=== PATIENT | female | born 2000 | race Caucasian/White ===

== ENCOUNTER 2019-02-01 16:13 | Emergency (ER) | payer BC ==
[2019-02-01] MEDS ORDERED: NS 0.9% 1000 ML** 1,000 ML IV ONE ×2 (16:33→18:28)
[2019-02-01 17:05] LABS: ABS Basophils 0.1 10^3/ul (0-0.2); ABS Lymphocytes 0.5 10^3/ul (1.0-4.8); ABS Monocytes 0.7 10^3/ul (0-0.8); ABS Neutrophils 9.4 10^3/ul (1.5-7.7); Eosinophil % 0.4 %; Hematocrit 45 % (35-47); Lymphocyte % 4.7 %; Mean Corpuscular HGB Conc 36 g/dL (31-36); Mean Corpuscular Hemoglobin 31 pg (27-31); Mean Corpuscular Volume 86 fL (80-97); Mean Platelet Volume 8.9 fL (7.4-10.4); Platelet Count 176 10^3/uL (150-450); Red Blood Count 5.18 10^6 /uL (3.70-4.87); Red Cell Distribution Width 13 % (10-15); White Blood Count 10.8 10^3/uL (3.5-10.8)
[2019-02-01 17:30] LABS: ALT 20 U/L (7-52); AST 23 U/L (13-39); Albumin 4.3 g/dL (3.2-5.2); Albumin/Globulin Ratio 1.6 (1-3); Alkaline Phosphatase 73 U/L (34-104); Anion Gap 10 mmol/L (2-11); BUN/Creatinine Ratio 16.1 (8-20); Blood Urea Nitrogen 15 mg/dL (6-24); CO2 Carbon Dioxide 23 mmol/L (22-32); Calcium 9.3 mg/dL (8.6-10.3); Chloride 106 mmol/L (101-111); EGFR Non-African American 77.7 (>60); Globulin 2.7 g/dL (2-4); Glucose 109 mg/dL (70-100); Potassium 3.9 mmol/L (3.5-5.0); Sodium 139 mmol/L (135-145)
[2019-02-01 17:31] LABS: HCG Pregnancy < 0.60 mIU/mL
--- NOTE | 2019-02-01 18:10 | ED ---
Abdominal Pain/Female - HPI Summary HPI Summary: Patient is a 18 y/o F presenting to [facility] with complaints of abdominal pain and N/V/D. She states that Sx onset this morning, 02/01/19, when she awoke. Pain is described as an ache and is noted to be at lower abdomen. She states that her friend was at [facility] for similar Sx and was diagnosed with "stomach virus". She denies recent travel to foreign countries in the past thirty days. Abdominal pain is slightly better since onset but still present. She denies cough, blood in stool. Stool is watery. Vitals in room are pulse 93, o2 99 on RA, and BP 122/ 70. - History of Current Complaint Chief Complaint: EDNauseaVomitDiarrh Stated Complaint: ABD PAIN,VOMITING,DIARRHEA PER PT Time Seen by Provider: 02/01/19 16:32 Hx Obtained From: Patient Onset/Duration: Lasting Hours, Still Present Timing: Hours Severity Currently: Severe Pain Intensity: 8 Pain Scale Used: 0-10 Numeric Location: Other - lower Character: Other: - aching Associated Signs and Symptoms: Positive: Nausea, Vomiting, Diarrhea, Other: - no cough or blood in stool Allergies/Adverse Reactions: Allergies Allergy/AdvReac Type Severity Reaction Status Date / Time No Known Allergies Allergy Verified 02/01/19 17:44 PMH/Surg Hx/FS Hx/Imm Hx Sensory History: Denies: Hx Legally Blind, Hx Deafness Opthamlomology History: Denies: Hx Legally Blind EENT History: Denies: Hx Deafness Infectious Disease History: No Infectious Disease History: Denies: Traveled Outside the [place] in Last 30 Days - Family History Known Family History: Negative: Hypertension - Social History Alcohol Use: None Substance Use Type: Reports: None Smoking Status (MU): Never Smoked Tobacco Review of Systems Negative: Cough Gastrointestinal: Other - negative - blood in stool Positive: Abdominal Pain, Vomiting, Diarrhea, Nausea All Other Systems Reviewed And Are Negative: Yes Physical Exam - Summary Physical Exam Summary: Constitutional: Well-developed, Well-nourished, Alert. (-) Distressed Skin: Warm, Dry HENT: Normocephalic; Atraumatic Eyes: Conjunctiva normal Neck: Musculoskeletal ROM normal neck. (-) JVD, (-) Stridor, (-) Tracheal deviation Cardio: Rhythm regular, rate normal, Heart sounds normal; Intact distal pulses; The pedal pulses are 2+ and symmetric. Radial pulses are 2+ and symmetric. (-) Murmur Pulmonary/Chest wall: Effort normal. (-) Respiratory distress, (-) Wheezes, (-) Rales Abd: Soft, general tenderness throughout lower abdomen, no focal tenderness (-) Distension, (-) Guarding, (-) Rebound Musculoskeletal: (-) Edema Lymph: (-) Cervical adenopathy Neuro: Alert, Oriented x3 Psych: Mood and affect Normal Triage Information Reviewed: Yes Vital Signs On Initial Exam: Initial Vitals Temp Pulse Resp BP Pulse Ox 99.4 F 116 20 122/80 98 02/01/19 16:19 02/01/19 16:19 02/01/19 16:19 02/01/19 16:19 02/01/19 16:19 Vital Signs Reviewed: Yes Procedures - Sedation Patient Received Moderate/Deep Sedation with Procedure: No Diagnostics - Vital Signs Vital Signs Temp Pulse Resp BP Pulse Ox 02/01/19 17:48 99.4 F 02/01/19 17:46 102 119/55 99 02/01/19 16:19 99.4 F 116 20 122/80 98 - Laboratory Lab Results: Lab Results 02/01/19 02/01/19 Range/Units 16:42 16:42 WBC 10.8 (3.5-10.8) 10^3/uL RBC 5.18 H (3.70-4.87) 10^6 /uL Hgb 16.0 (12.0-16.0) g/dL Hct 45 (35-47) % MCV 86 (80-97) fL MCH 31 (27-31) pg MCHC 36 (31-36) g/dL RDW 13 (10-15) % Plt Count 176 (150-450) 10^3/uL MPV 8.9 (7.4-10.4) fL Neut % (Auto) 87.8 % Lymph % (Auto) 4.7 % Sutton % (Auto) 6.3 % Eos % (Auto) 0.4 % Baso % (Auto) 0.8 % Absolute Neuts (auto) 9.4 H (1.5-7.7) 10^3/ul Absolute Lymphs (auto) 0.5 L (1.0-4.8) 10^3/ul Absolute Monos (auto) 0.7 (0-0.8) 10^3/ul Absolute Eos (auto) 0.0 (0-0.6) 10^3/ul Absolute Basos (auto) 0.1 (0-0.2) 10^3/ul Absolute Nucleated RBC 0.0 10^3/ul Nucleated RBC % 0.0 Sodium 139 (135-145) mmol/L Potassium 3.9 (3.5-5.0) mmol/L Chloride 106 (101-111) mmol/L Carbon Dioxide 23 (22-32) mmol/L Anion Gap 10 (2-11) mmol/L BUN 15 (6-24) mg/dL Creatinine 0.93 (0.51-0.95) mg/dL Est GFR ( Amer) 94.0 (>60) Est GFR (Non-Af Amer) 77.7 (>60) BUN/Creatinine Ratio 16.1 (8-20) Glucose 109 H (70-100) mg/dL Calcium 9.3 (8.6-10.3) mg/dL Total Bilirubin 0.60 (0.2-1.0) mg/dL AST 23 (13-39) U/L ALT 20 (7-52) U/L Alkaline Phosphatase 73 (34-104) U/L Total Protein 7.0 (6.4-8.9) g/dL Albumin 4.3 (3.2-5.2) g/dL Globulin 2.7 (2-4) g/dL Albumin/Globulin Ratio 1.6 (1-3) Beta HCG, Quant < 0.60 mIU/mL Result Diagrams: 02/01/19 16:42 02/01/19 16:42 Lab Statement: Any lab studies that have been ordered have been reviewed, and results considered in the medical decision making process. Abdominal Pain Fem Course/Dx - Course Course Of Treatment: Patient is a 18 y/o F presenting to [facility] with complaints of abdominal pain and N/V/D. She states that Sx onset this morning, 02/01/19, when she awoke. Pain is described as an ache and is noted to be at lower abdomen. She states that her friend was at [facility] for similar Sx and was diagnosed with "stomach virus". She denies recent travel to foreign countries in the past thirty days. Abdominal pain is slightly better since onset but still present. She denies cough, blood in stool. Stool is watery. Patient has general tenderness throughout lower abdomen, no focal tenderness. Bloodwork was obtained. Abnormal values include RBC 5.18, absolute neuts 9.4, absolute lymphs 0.5, glucose 109. During ED course, patient received 2 L NS, toradol 30 mg IV, and Zofran 4 mg IV. Patient was discharged to home with prescription for Zofran and will follow up with PCP within 2-3 days. - Diagnoses Provider Diagnoses: Gastroenteritis Discharge ED - Sign-Out/Discharge Documenting (check all that apply): Patient Departure - discharge - Discharge Plan Condition: Stable Disposition: HOME Prescriptions: Ondansetron TAB* [Zofran 4 MG Tab*] 4 mg PO Q6H PRN #10 tab PRN Reason: Nausea Patient Education Materials: Gastroenteritis (ED) Referrals: [facility] @ [Outside] - 3 Days Additional Instructions: PLEASE RETURN TO ED FOR ANY NEW OR WORSENING SYMPTOMS. FOLLOW UP WITH YOUR PRIMARY CARE PHYSICIAN WITHIN 2-3 DAYS. - Billing Disposition and Condition Condition: STABLE Disposition: Home - Attestation Statements Document Initiated by Lidia: Yes Documenting Scribe: RAUL BRUNO Provider For Whom Lidia is Documenting (Include Credential): ALVERTO LOVE DO Scribe Attestation: RAUL Cotter scribed for ALVERTO LOVE DO on 02/01/19 at 1928. Scribe Documentation Reviewed: Yes Provider Attestation: The documentation as recorded by the RAUL lagunas accurately reflects the service I personally performed and the decisions made by ALVERTO becerril DO Status of Scrbabar Document: Viewed
[2019-02-01] MEDS ORDERED: Ondansetron INJ* 2 MG/ML VIAL IV ONE (18:27)
[2019-02-01] MEDS ORDERED: Ketorolac INJ* 30 MG/ML 1 ML VIAL IV PUSH ONE (18:27)
[2019-02-01 19:18] VITALS: BP 128/72
== END 2019-02-01 19:10 | disposition home or self-care (01) ==
LOC: ED 16:13
DX: K52.9 Noninfective gastroenteritis and colitis, unspecified (principal); R10.9 Unspecified abdominal pain; R11.2 Nausea with vomiting, unspecified; R19.7 Diarrhea, unspecified
CPT/HCPCS: 36415; 80053; 84702; 85025; 96361; 96374; 96375; 99283; J1885; J2405